=== PATIENT | female | born 1985 | race African-American/Black ===

== ENCOUNTER 2017-07-16 02:35 | Emergency (ER) | payer SELFPAY | END 2017-07-16 04:36 | disposition home or self-care (01) | LOC: ERS 02:35 | DX: B34.9 Viral infection, unspecified (principal); F17.210 Nicotine dependence, cigarettes, uncomplicated | CPT/HCPCS: 99283 ==

== ENCOUNTER 2019-09-03 15:36 | Outpatient (CLI) | payer OTHER ==
--- NOTE | 2019-09-03 16:49 | MRI ---
MRI Upper Ext Jt Rt WO Con History: Pain Comparison: None. Findings: Biceps tendon: The extra articular biceps tendon is normal. Intra-articular tendon is crista l. Labrum: Intact Rotator cuff: Low-grade bursal surface fraying supraspinatus tendon. No full-thickness perforation. R emainder of the rotator cuff is normal. Bones: Type III acromion with narrowed subacromial space. Normal glenoid version. Soft tissues: Trace subacromial subdeltoid bursa effusion. Enlarged right axillary lymph nodes. No so ft tissue contusion. Muscles: Muscle signal and bulk is normal. Impression: 1. 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 2. No acute internal derangement. 3. Enlarged right axillary lymph nodes similar to prior CT examination from 2017. Recommend correlati on with underlying granulomatous disease or sarcoidosis.
== END 2019-09-03 15:37 | disposition home or self-care (01) ==
LOC: BICMRI 15:36
PROVIDERS: ATTEND Family Medicine
DX: S49.91XD Unspecified injury of right shoulder and upper arm, subsequent encounter (principal); R59.0 Localized enlarged lymph nodes; M89.8X2 Other specified disorders of bone, upper arm

== ENCOUNTER 2019-09-07 22:31 | Emergency (ER) | payer SELFPAY ==
--- NOTE | 2019-09-07 23:21 | RAD ---
EXAM: CHEST ONE VIEW HISTORY: Cough. Nausea vomiting and diarrhea. Left flank pain. COMPARISON: None FINDINGS: The cardiac silhouette and pulmonary vasculature is within normal limits. The lungs are clear. The os seous structures are intact. IMPRESSION: No acute cardiopulmonary process. Chest radiographs demonstrate low sensitivity for evaluation of sub tle groundglass opacities which can be seen with viral pneumonitis.
[2019-09-07 23:26] LABS: #Eosinphils 0.1 thou/uL (0.0-0.7); #Lymphocytes 3.3 thou/uL (1.20-3.40); #Monocytes 0.5 thou/uL (0.11-0.59); #Neutrophils 3.8 thou/uL (1.40-6.50); %Basophils 0.3 % (0.0-1.0); %Eosinophils 0.8 % (0.0-10.0); %Lymphocytes 43.4 % (21.0-51.0); %Monocytes 5.9 % (0.0-10.0); %Neutrophils 49.5 % (42.0-75.0); Hemoglobin 9.3 g/dL (12.0-16.0); Mean Corpuscular HGB CONC 30.3 g/dL (32.0-36.0); Mean Corpuscular Volume 62.7 fL (78.0-98.0); Mean Platelet Volume 5.3 fL (7.4-10.4); Platelet Count 362 thou/uL (130-400); RBC Distribution Width 19.8 % (11.5-14.5); Red Blood Cell (RBC) Count 4.91 mill/uL (4.20-5.40); White Blood Cell (WBC) Count 7.7 thou/uL (4.8-10.8)
[2019-09-07] MEDS ORDERED: Ketorolac Tromethamine 30 MG/ML VIAL ONE (23:29)
[2019-09-07 23:35] LABS: ALT (SGPT) 35 U/L (8-55); AST (SGOT) 27 U/L (5-34); Albumin 3.8 g/dL (3.5-5.0); Alkaline Phosphatase 112 U/L (40-110); Anion Gap 13 mmol/L (10-20); BUN (Urea Nitrogen) 10 mg/dL (7.0-18.7); Bilirubin, Total 0.2 mg/dL (0.2-1.2); Calc. Creatinine Clearance 0 mL/min (70-130); Carbon Dioxide 26 mmol/L (22-29); Chloride 105 mmol/L (98-107); Estimated GFR-MDRD Greater than 90; Globulin 4.2 g/dL (2.4-3.5); Glucose 118 mg/dL (70-105); Lipase 31 U/L (8-78); Potassium 3.5 mmol/L (3.5-5.1); Sodium 140 mmol/L (136-145)
[2019-09-07 23:42] LABS: Bilirubin Negative (Negative); Blood, Urine Negative (Negative); Clarity Clear (Clear); Glucose, Urine (Dipstick) Normal (Negative); Ketone, Urine Negative (Negative); Leukocyte Negative Leu/uL (Negative); Nitrite Negative (Negative); Protein, Urine (Dipstick) Negative (Neg-Trace); Specific Gravity, Urine 1.027 (1.002-1.036); Urobilinogen Normal mg/dL (Less than 2)
[2019-09-07 23:44] LABS: Anisocytosis SLIGHT = 6-15 cells (100X) (0-5/hpf); Hypochromia SLIGHT = 6-15 cells (100X) (0-5/hpf); MDiff Complete? YES; Microcytosis MODERATE=15-30 cells (100X) (0-5/hpf); Platelet Morphology Comment Appears Adequate; Polychromasia SLIGHT = 2-3 cells (100X) (0-2/hpf); Reflex for Review?? YES; Target Cells SLIGHT = 2-5 cells (100X) (0-1/hpf); Tear Drops SLIGHT = 2-5 cells (100X) (0-1/hpf)
[2019-09-07 23:55] LABS: BHCG - Serum Negative (NEGATIVE); Pregs Control Background? CLEAR/WHITE (CLR/WHITE); Pregs Control Bar Appear? YES (CONTROL BAR)
== END 2019-09-08 00:29 | disposition home or self-care (01) ==
LOC: ERS 22:31
DX: R10.9 Unspecified abdominal pain (principal); R11.2 Nausea with vomiting, unspecified; R19.7 Diarrhea, unspecified; Z20.828 Contact with and (suspected) exposure to other viral communicable diseases; F17.210 Nicotine dependence, cigarettes, uncomplicated
CPT/HCPCS: 71045; 80053; 81003; 83605; 83690; 84703; 85025; 85060; 93005; 96374; J1885

== ENCOUNTER 2019-09-21 12:10 | Emergency (ER) | payer OTHER ==
[2019-09-22 13:13] LABS: SARS-CoV-2 MS2 Positive; SARS-CoV-2 N Gene Negative; SARS-CoV-2 S Gene Negative; SARS-CoV-2 by NAA Not Detected (NotDetected); SARS-CoV-2 orf1ab Negative
== END 2019-09-21 12:36 | disposition home or self-care (01) ==
LOC: ERS 12:10
DX: Z20.828 Contact with and (suspected) exposure to other viral communicable diseases (principal); F17.210 Nicotine dependence, cigarettes, uncomplicated
CPT/HCPCS: 87635; 99283; U0003